=== PATIENT | female | born 1985 | race Caucasian/White ===

== ENCOUNTER 2022-06-22 10:14 | Day surgery (SDC) | payer OTHER ==
[~2022-06-22] VITALS: Ht 175.3 cm; Wt 117.7 kg
[2022-06-22] VITALS (10 sets, daily range): BP systolic 101–139; BP diastolic 62–89; PULSE 50–88; TEMP 97.2–99.8
[2022-06-22] MEDS ORDERED: ALLEGRA 180MG180 MG PO (10:50)
--- NOTE | 2022-06-22 10:50 | NUR ---
FELIPE Otero was notified that the patient had 1 bite of a breakfast burrito at this morning at 0600. She verbalized understanding of the report given and is ok to proceed with surgery as scheduled. No further orders obtained at this time.
--- NOTE | 2022-06-22 15:35 | NUR ---
1535- O2 decreased to 1L. 1543- O2 remains 100%.
--- NOTE | 2022-06-22 15:45 | NUR ---
1545- Pt ambulates to bathroom independently with standby assist x1. Pt verbalizes feeling cramping/gasy like she may need to have BM 1600- Pt ambulates back to bed indpendently with this RN standby. Pt states unable to pass gas or have BM but feels better after being up and ambulating. Pt back to bed, monitors on, SCDs on, call light at bedside with Pt.
[2022-06-23 01:05] VITALS: BP 123/51; PULSE 69; TEMP 98.5
[2022-06-23 04:14] VITALS: BP 114/44; PULSE 71; TEMP 98.2
[2022-06-23 08:18] VITALS: BP 112/53; PULSE 73; TEMP 98.1
--- NOTE | 2022-06-23 09:16 | NUR ---
Initial visit; Patient thanked [employer]gr[employer] Instructor for looking in on her and keeping her in [employer]gr[employer] Instructor's prayers.
[2022-07-03] MEDS ORDERED: CLEOCIN HCL300 MG PO (08:59)
[2022-07-03] MEDS ORDERED: BACTRIM DS 8001 TAB PO (09:00)
== END 2022-06-23 10:07 | disposition home or self-care (01) ==
LOC: SDCO 10:14 → OB 14:45 → SDCO 06-23 10:07
DX: N92.0 Excessive and frequent menstruation with regular cycle (principal); N80.30 Endometriosis of pelvic peritoneum, unspecified
CPT/HCPCS: OP; A4314; J1170; J1885; J2405; J2704; J3010; J7120